=== PATIENT | female | born 1960 | race Caucasian/White ===

== ENCOUNTER → 2017-03-12 | Outpatient (CLI) | payer OTHER | END | disposition home or self-care (01) | LOC: CFH 11:49 | PROVIDERS: ATTEND Neurological Surgery | DX: Z13.820 Encounter for screening for osteoporosis (principal); M85.80 Other specified disorders of bone density and structure, unspecified site; M41.86 Other forms of scoliosis, lumbar region; M48.06 Spinal stenosis, lumbar region; M48.05 Spinal stenosis, thoracolumbar region; M12.88 Other specific arthropathies, not elsewhere classified, other specified site; M51.35 Other intervertebral disc degeneration, thoracolumbar region; M41.85 Other forms of scoliosis, thoracolumbar region; G89.29 Other chronic pain; M81.0 Age-related osteoporosis without current pathological fracture; Z98.1 Arthrodesis status | CPT/HCPCS: 72082; 72128; 72131; 77080 ==

== ENCOUNTER → 2018-04-01 | Outpatient (CLI) | payer OTHER | END | disposition home or self-care (01) | LOC: CFH 14:10 | PROVIDERS: ATTEND Internal Medicine Endocrinology, Diabetes & Metabolism | DX: M48.05 Spinal stenosis, thoracolumbar region (principal); M48.07 Spinal stenosis, lumbosacral region | CPT/HCPCS: 72158 ==

== ENCOUNTER → 2019-03-30 | Outpatient (CLI) | payer OTHER ==
[2019-03-30 15:13] LABS: BASOPHILS # (AUTO) 0.04 x10^3/uL (0-0.1); BASOPHILS % (AUTO) 0 % (0-1); EOSINOPHILS # (AUTO) 0.11 x10^3/uL (0-0.4); EOSINOPHILS % (AUTO) 1 % (1-7); LYMPHOCYTES # (AUTO) 1.29 x10^3/uL (1-3.4); LYMPHOCYTES % (AUTO) 12 % (22-44); MD NO; MEAN CORPUSCULAR HEMOGLOBIN 30.7 pg (27.0-34.8); MEAN CORPUSCULAR HGB CONC 31.6 g/dL (32.4-35.8); MEAN CORPUSCULAR VOLUME 97.1 fL (80-100); MEAN PLATELET VOLUME 7.2 fL (7.4-10.4); MONOCYTES # (AUTO) 0.51 x10^3/uL (0.2-0.8); MONOCYTES % (AUTO) 5 % (2-9); NEUTROPHILS # (AUTO) 8.98 x10^3/uL (1.8-6.8); NEUTROPHILS % (AUTO) 82 % (42-75); PLATELET COUNT 389 x10^3/uL (130-400); RED BLOOD COUNT 4.88 x10^6/uL (3.82-5.3); RED CELL DISTRIBUTION WIDTH 14.1 % (9.6-15.2)
[2019-03-30 15:23] LABS: INTERNATIONAL NORMALIZED RATIO 0.96 (0.93-1.1); PROTHROMBIN TIME 10.1 Seconds (9.6-11.5)
[2019-03-30 15:25] LABS: CALCIUM 9.4 mg/dL (8.5-10.1); CHLORIDE 106 mmol/L (98-107)
[2019-03-30 15:31] LABS: ALANINE AMINOTRANSFERASE 23 U/L (12-78); ALBUMIN 3.8 g/dL (3.4-5.0); ALKALINE PHOSPHATASE 295 U/L (45-117); ANION GAP 5 mmol/L (5-15); BILIRUBIN,TOTAL 0.3 mg/dL (0.2-1.0); CREATININE 0.88 mg/dL (0.55-1.02); TOTAL PROTEIN 7.4 g/dL (6.4-8.2)
== END | disposition home or self-care (01) ==
LOC: STAR 13:49
PROVIDERS: ATTEND Neurological Surgery
DX: Z01.818 Encounter for other preprocedural examination (principal); M48.02 Spinal stenosis, cervical region
CPT/HCPCS: 36415; 80053; 85025; 85610; 85730; 93005

== ENCOUNTER 2019-04-12 07:45 | Inpatient (IN) | payer OTHER ==
[~2019-04-12] VITALS: Ht 175.3 cm; Wt 83.3 kg
[~2019-04-12 07:45] MED LIST: AMPH20TA2 PO; APIX5TAB PO; HYDR1TAB16 PO; MORP15TA3 PO; PIOG15TA66 PO
[2019-04-12] MEDS ORDERED: LACTATED RINGERS 1,000 ML IV SCH (08:31)
[2019-04-12] MEDS ORDERED: METO50TA82 PO (08:36)
[2019-04-12] MEDS ORDERED: CARI250T PO (08:36)
[2019-04-12] MEDS ORDERED: CEFAZOLIN 1,000 MG ONE ×2 (08:56)
[2019-04-12] MEDS ORDERED: MIDAZOLAM 1 MG/ML, 2ML ONE (08:56)
[2019-04-12] MEDS ORDERED: FENTANYL PF 250 MCG/5ML ONE (08:56)
[2019-04-12] MEDS ORDERED: LIDOCAINE-MPF 2% ,5ML ONE (08:56)
[2019-04-12] MEDS ORDERED: SUCCINYLCHOLINE 20 MG/ML, 10ML ONE (08:56)
[2019-04-12] MEDS ORDERED: PROPOFOL 10 MG/ML, 20ML ONE (08:56)
[2019-04-12] MEDS ORDERED: DEXAMETHASONE 4 MG/ML, 1ML ONE ×2 (08:57)
[2019-04-12] MEDS ORDERED: PROPOFOL 50 ML ONE ×4 (08:57→12:58)
[2019-04-12] MEDS ORDERED: CLON0.2T PO (08:58)
[2019-04-12] MEDS ORDERED: PRED20TA PO (08:58)
[2019-04-12 09:19] LABS: INTERNATIONAL NORMALIZED RATIO 0.91 (0.93-1.1); PROTHROMBIN TIME 9.6 Seconds (9.6-11.5)
[2019-04-12] MEDS ORDERED: BUPIVACAINE/EPI 0.5% 1:200K ONE (10:25)
[2019-04-12] MEDS ORDERED: THROMBIN 5,000 UNIT VIAL TP ONE ×3 (10:25→12:37)
[2019-04-12] MEDS ORDERED: BACITRACIN 50,000 UNIT ONE (10:25)
[2019-04-12] MEDS ORDERED: LORazepam 2 MG/ML, 1ML IVPush PRN (11:30)
[2019-04-12] MEDS ORDERED: ALBUTEROL/IPRATROPIUM 2.5MG/0.5MG, 3 ML NPPB PRN (11:30)
[2019-04-12] MEDS ORDERED: METOPROLOL 1 MG/ML, 5ML IV PRN (11:30)
[2019-04-12] MEDS ORDERED: ONDANSETRON 2MG/ML, 2ML IV PRN ×2 (11:30→16:00)
[2019-04-12] MEDS ORDERED: LABETALOL 5MG/ML, 20ML IV PRN ×2 (11:30→16:00)
[2019-04-12] MEDS ORDERED: hydrALAzine 20 MG/ML, 1ML IV PRN (11:30)
[2019-04-12] MEDS ORDERED: METOCLOPRAMIDE 5 MG/ML, 2ML IV PRN (11:30)
[2019-04-12] MEDS ORDERED: MEPERIDINE/PF 25MG/0.5ML IVPush PRN (11:30)
[2019-04-12] MEDS ORDERED: OXYcodone 5 MG/5 ML ORAL.SOL UDC PO PRN (11:30)
[2019-04-12] MEDS ORDERED: ACETAMINOPHEN 325 MG TABLET PO PRN (11:30)
[2019-04-12] MEDS ORDERED: ONDANSETRON 2MG/ML, 2ML ONE (11:52)
[2019-04-12] MEDS ORDERED: FENTANYL PF 100 MCG/2ML ONE ×2 (12:58→13:52)
[2019-04-12] MEDS ORDERED: HYDROmorphone 2 MG/ML, 1ML ONE (13:52)
[2019-04-12] MEDS: FENTANYL PF 100 MCG/2ML IV PRN ×2 (13:55→14:18)
[2019-04-12] MEDS ORDERED: METHOCARBAMOL 1,000 MG in DEXTROSE 5% 100 ML IV ONE (14:00)
[2019-04-12] MEDS: HYDROmorphone 2 MG/ML, 1ML IVPush PRN ×3 (14:00→14:20)
[2019-04-12] MEDS ORDERED: OXYcodone 5 MG/5 ML ORAL.SOL UDC ONE (14:03)
[2019-04-12 15:25] VITALS: BP 132/83
[2019-04-12] MEDS ORDERED: PHARMACY MAY ADJ FOR RENAL FX MC PRN (15:30)
[2019-04-12] MEDS ORDERED: OXYcodone/APAP 5/325MG TABLET PO PRN (16:00)
[2019-04-12] MEDS ORDERED: HYDROmorphone 2 MG/ML, 1ML IM PRN (16:00)
[2019-04-12] MEDS ORDERED: CYCLOBENZAPRINE 10 MG TABLET PO PRN (16:00)
[2019-04-12] MEDS ORDERED: DIAZEPAM 5 MG/ML, 2ML IV PRN (16:00)
[2019-04-12] MEDS ORDERED: DIPHENHYDRAMINE 50 MG/ML, 1ML IVPush PRN (16:00)
[2019-04-12] MEDS ORDERED: MAGNESIUM HYDROXIDE 8%, 30ML UDC PO PRN (16:00)
[2019-04-12] MEDS ORDERED: HYDROcodone/APAP 5/325 TABLET PO PRN (16:00)
[2019-04-12] MEDS ORDERED: PROMETHAZINE 25 MG/ML, 1ML IM PRN (16:00)
[2019-04-12] MEDS ORDERED: DIAZEPAM 5 MG TABLET PO PRN (16:00)
[2019-04-12] MEDS ORDERED: DIPHENHYDRAMINE 50 MG/ML, 1ML IM PRN (16:00)
[2019-04-12] MEDS ORDERED: DIPHENHYDRAMINE 50 MG CAPSULE PO PRN (16:00)
[2019-04-12] MEDS ORDERED: BISACODYL 10 MG SUPP PR PRN (16:00)
[2019-04-12] MEDS ORDERED: PIOGLITAZONE MC SCH (16:00)
[2019-04-12] MEDS ORDERED: HYDROmorphone 2 MG/ML, 1ML IVPush PRN (16:00)
[2019-04-12 18:04] VITALS: BP 118/55
[2019-04-12] MEDS: METOPROLOL TARTRATE 25 MG TABLET PO SCH (18:04)
[2019-04-12] MEDS: CEFAZOLIN PMX 1GM/50ML 50 ML IVPB SCH (18:04)
[2019-04-12 19:22] VITALS: BP 121/76
[2019-04-12] MEDS: CARISOPRODOL 250 MG PO SCH (21:00)
[2019-04-12] MEDS: NS + 20MEQ KCL 1,000 ML IV SCH (21:14)
[2019-04-12] MEDS ORDERED: METHOCARBAMOL 750 MG TABLET PO PRN (22:00)
[2019-04-13 00:01] VITALS: BP 94/63
[2019-04-13] MEDS: CEFAZOLIN PMX 1GM/50ML 50 ML IVPB SCH (02:39)
[2019-04-13 03:22] VITALS: BP 114/65
[2019-04-13] MEDS: METOPROLOL TARTRATE 25 MG TABLET PO SCH (05:42)
[2019-04-13] MEDS ORDERED: PIOGLITAZONE 15 MG TABLET PO SCH (08:00)
[2019-04-13] MEDS: CARISOPRODOL 250 MG PO SCH (08:16)
[2019-04-13] MEDS ORDERED: SENNA/DOCUSATE TABLET PO SCH (09:00)
[2019-04-13 09:06] VITALS: BP 106/64
[2019-04-13] MEDS: NS + 20MEQ KCL 1,000 ML IV SCH (09:11)
== END 2019-04-13 12:30 | disposition home or self-care (01) | DRG 472 ==
LOC: ORIP 07:45 → 4NOR 15:24 → DCLOUNGE 04-13 12:15
PROVIDERS: ADMIT Neurological Surgery; ATTEND Neurological Surgery
PROC: 0RB30ZZ Excision of Cervical Vertebral Disc, Open Approach (ICD-10-PCS; 2019-04-12)
PROC: 0RG40A0 Fusion of Cervicothoracic Vertebral Joint with Interbody Fusion Device, Anterior Approach, Anterior Column, Open Approach (ICD-10-PCS; 2019-04-12)
PROC: 4A11X4G Monitoring of Peripheral Nervous Electrical Activity, Intraoperative, External Approach (ICD-10-PCS; 2019-04-12)
PROC: 01N10ZZ Release Cervical Nerve, Open Approach (ICD-10-PCS; 2019-04-12)
PROC: 0RG20A0 Fusion of 2 or more Cervical Vertebral Joints with Interbody Fusion Device, Anterior Approach, Anterior Column, Open Approach (ICD-10-PCS; principal; 2019-04-12 10:30)
DX: M48.03 Spinal stenosis, cervicothoracic region (principal); D68.69 Other thrombophilia; E11.9 Type 2 diabetes mellitus without complications; M54.13 Radiculopathy, cervicothoracic region; Z79.01 Long term (current) use of anticoagulants; Z86.718 Personal history of other venous thrombosis and embolism; Z86.711 Personal history of pulmonary embolism
CPT/HCPCS: 36415; 72040; J3490; 82962; 85610; 85730; 86850; 86900; 95938; 95941; C1713; C1776; G0378; J0690; J1100; J1170; J2250; J2270; J2405; J2704; J3010; J3480; J0330; J2800; J7120; J7512